=== PATIENT | female | born 1995 | race Caucasian/White ===

== ENCOUNTER → 2019-12-09 | Outpatient (CLI) | payer OTHER ==
[~2019-12-09] MED LIST: ALBU.083IS IH; BIRTH CONTROL; FLUSAL1005 IH; IBUP800 PO; MONT10T PO
[2019-12-10 21:09] LABS: CHLAMYDIA TRACHOMATIS, NAA Negative (Negative); NEISSERIA GONORRHOEAE, NAA Negative (Negative)
== END | disposition home or self-care (01) ==
LOC: LAB SHORT 15:20 → LAB EV 15:20
PROVIDERS: Chiropractor
DX: N34.2 Other urethritis (principal)
CPT/HCPCS: 87491; 87591

== ENCOUNTER → 2020-02-03 | Outpatient (CLI) | payer OTHER ==
[2020-02-04 10:32] LABS: Candida species (DNA Probe) Positive (NEGATIVE); G. vaginalis (DNA Probe) Negative (NEGATIVE); T. vaginalis (DNA Probe) Negative (NEGATIVE)
== END | disposition home or self-care (01) ==
LOC: LAB EV 17:43 → LAB SHORT 17:43
PROVIDERS: Chiropractor
DX: N94.10 Unspecified dyspareunia (principal)
CPT/HCPCS: 87070; 87205; 87480; 87510; 87660

== ENCOUNTER → 2020-02-10 | Outpatient (CLI) | payer OTHER ==
[2020-02-10 16:46] LABS: BASOPHILS ABSOLUTE AUTO 0.05 K/mm3 (0.00-0.23); BASOPHILS PERCENT AUTO 1 % (0-2); EOSINOPHILS ABSOLUTE AUTO 0.27 K/mm3 (0.00-0.68); EOSINOPHILS PERCENT AUTO 3 % (0-6); Hematocrit 45.7 % (33.0-51.0); Hemoglobin 15.4 g/dL (11.5-16.0); IMMATURE GRAN ABSOLUTE AUTO 0.01 K/mm3 (0.00-0.10); IMMATURE GRAN PERCENT AUTO 0 % (0-1); LYMPHOCYTES ABSOLUTE AUTO 2.36 K/mm3 (0.84-5.20); LYMPHOCYTES PERCENT AUTO 30 % (21-46); MONOCYTES ABSOLUTE AUTO 0.61 K/mm3 (0.16-1.47); MONOCYTES PERCENT AUTO 8 % (4-13); Mean Corpuscular HGB 29.2 pg (26.0-34.0); Mean Corpuscular HGB Conc 33.7 g/dL (31.5-36.5); Mean Corpuscular Volume 87 fL (80-100); Mean Platelet Volume 10.2 fL (9.1-12.4); NEUTROPHILS ABSOLUTE AUTO 4.55 K/mm3 (1.96-9.15); NEUTROPHILS PERCENT AUTO 58 % (41-73); Platelet Count 277 K/mm3 (150-400); RDW Coefficient Variation 12.2 % (11.7-14.2); RDW Standard Deviation 38.9 fL (35.1-46.3); Red Blood Cell Count 5.28 M/mm3 (3.80-5.20); White Blood Cell Count 7.85 K/mm3 (4.00-11.30)
[2020-02-10 16:57] LABS: Alanine Aminotransfer (ALT/SGP 19 U/L (12-78); Albumin, Blood 4.2 g/dL (3.4-5.0); Albumin/Globulin Ratio 1.1 (0.8-1.8); Alk Phos 79 U/L (40-126); Anion Gap 8 mmol/L (6-16); Aspartate Aminotrans (AST/SGOT 13 U/L (12-37); Bilirubin, Total 0.3 mg/dL (0.1-1.0); Blood Urea Nitrogen 12 mg/dL (8-24); Bun/Creatinine Ratio 13.2 (12.0-20.0); CO2, Blood 30 mmol/L (21-32); Calcium, Blood 9.5 mg/dL (8.5-10.1); Chloride, Blood 101 mmol/L (98-108); Creatinine, Blood 0.91 mg/dL (0.40-1.00); Glomerular Filtration Rate >60 (60-); Glucose, Blood 88 mg/dL (70-99); Potassium, Blood 3.9 mmol/L (3.5-5.5); Sodium, Blood 139 mmol/L (136-145); Total Protein, Blood 8.2 g/dL (6.4-8.2)
== END ==
LOC: LAB EV 16:42 → LAB SHORT 16:42
PROVIDERS: Physician Assistant
DX: R53.83 Other fatigue (principal)
CPT/HCPCS: 80053; 85025

== ENCOUNTER → 2021-01-24 | Outpatient (CLI) | payer OTHER ==
[2021-01-30 17:10] LABS: CHLAMYDIA BY NAA Negative (Negative); GONOCOCCUS BY NAA Negative (Negative); TRICH VAG BY NAA Negative (Negative)
== END ==
LOC: LAB SHORT 17:42 → LAB 17:42
PROVIDERS: Family Medicine
DX: Z01.419 Encounter for gynecological examination (general) (routine) without abnormal findings (principal)
CPT/HCPCS: 87491; 87591; 87661; G0123

== ENCOUNTER 2022-01-30 05:09 | Inpatient (IN) | payer OTHER ==
--- NOTE | 2022-01-30 07:18 | NUR ---
assumed care at 0715. See GE.
--- NOTE | 2022-01-30 07:47 | NUR ---
PT PUSHING IN ROOM WHEN RN ARRIVED.CNM CALLED. PT DELIVERED OVER INTACT PERNEIUM. PUSHED WELL. VIABLE FEMALE DELIVERED. LAURA TALBERT RN CHARGE IN [facility] FOR DELIVERY AND RENETTA MAYA RN.
--- NOTE | 2022-01-30 09:45 | NUR ---
UP TO SHOWER, PT VOIDED, ANTHONY AMBULATION WELL. LINENS CHANGED.
[2022-01-31 07:23] LABS: Hematocrit 42.8 % (33.0-51.0); Hemoglobin 13.8 g/dL (11.5-16.0); Mean Corpuscular HGB 29.3 pg (26.0-34.0); Mean Corpuscular HGB Conc 32.2 g/dL (31.5-36.5); Mean Corpuscular Volume 91 fL (80-100); Mean Platelet Volume 10.9 fL (9.1-12.4); Platelet Count 199 K/mm3 (150-400); RDW Coefficient Variation 12.5 % (11.7-14.2); RDW Standard Deviation 41.4 fL (35.1-46.3); Red Blood Cell Count 4.71 M/mm3 (3.80-5.20); White Blood Cell Count 15.34 K/mm3 (4.00-11.30)
== END 2022-01-31 09:50 | disposition home or self-care (01) | DRG 807 ==
LOC: BC 05:09 → OBS 05:09 → BC 07:45
PROVIDERS: Nurse Practitioner Obstetrics & Gynecology; ADMIT Family Medicine
PROC: 10E0XZZ Delivery of Products of Conception, External Approach (ICD-10-PCS; principal; 2022-01-30)
DX: O48.0 Post-term pregnancy (principal); Z37.0 Single live birth; O36.5930 Maternal care for other known or suspected poor fetal growth, third trimester, not applicable or unspecified; Z3A.40 40 weeks gestation of pregnancy
CPT/HCPCS: 36415; 59025; 85027; A9270; J2590

== ENCOUNTER 2022-06-29 08:30 | Day surgery (SDC) | payer OTHER ==
[~2022-06-29] VITALS: Ht 162.6 cm; Wt 61.8 kg
[2022-06-29] MEDS ORDERED: Camila0.35 MG PO (09:16)
[2022-06-29] MEDS ORDERED: Loratadine10 MG PO (09:16)
[2022-06-29] MEDS ORDERED: PRENATAL TABLE1 EAC2 PO (09:16)
--- NOTE | 2022-06-29 09:32 | NUR ---
06/29/22 0932 Cathy Briones CALL LIGHT WITHIN REACH. SCOPALAMINE PATCH ON RIGHT EAR PER DR. JOE ORDERS. NO FURTHER QUESTIONS AT THIS TIME.
--- NOTE | 2022-06-29 10:22 | NUR ---
06/29/22 1022 Brennan Osorio ABDOMINAL AREA PREPPED BY [facility] WITH DURAPREP. SRINIVAS AREA PREPPED BY [facility] ([place]) WITH BETADINE SOLUTION ROPIVACAINE 0.5% 20 MLS MIXED & VERIFIED WITH EPI 0.10 (1MG/ML) PER ORDER TO MAKE ROPIVACAINE 0.5% 1:200,000 FOR INJECTION AT OPSITE. MULTI DOSE VIAL. DIVIDED BY RNS.
[2022-06-29 11:36] VITALS: BP 100/66
--- NOTE | 2022-06-29 12:42 | NUR ---
06/29/22 1242 Alfa Garrison PT REPORTED 2/10 PAIN UPON DISCHARGE. SHE DESCRIBED PAIN TOLERABLE, REFUSED IV PAIN MEDICATIONS, AND EXPESSED READINESS TO GO HOME. SHE DENIED NAUSEA.
== END 2022-06-29 12:40 | disposition home or self-care (01) ==
LOC: ORSCSDS 08:30
PROVIDERS: Obstetrics & Gynecology
PROC: 0UT74ZZ Resection of Bilateral Fallopian Tubes, Percutaneous Endoscopic Approach (ICD-10-PCS; principal; 2022-06-29 09:45)
DX: Z30.2 Encounter for sterilization (principal); N80.30 Endometriosis of pelvic peritoneum, unspecified; N73.6 Female pelvic peritoneal adhesions (postinfective)
CPT/HCPCS: 88302; A9270; J0171; J0690; J1100; J1885; J2250; J2405; J2704; J2795; J3010; J7120

== ENCOUNTER → 2023-01-26 | Outpatient (CLI) | payer OTHER ==
[~2023-01-26] MED LIST changes: +Camila0.35 MG PO; +Loratadine10 MG PO; +PRENATAL TABLE1 EAC2 PO
[2023-01-26 18:52] LABS: BASOPHILS ABSOLUTE AUTO 0.03 K/mm3 (0.00-0.23); BASOPHILS PERCENT AUTO 0 % (0-2); EOSINOPHILS ABSOLUTE AUTO 0.18 K/mm3 (0.00-0.68); EOSINOPHILS PERCENT AUTO 3 % (0-6); Hematocrit 41.4 % (33.0-51.0); IMMATURE GRAN ABSOLUTE AUTO 0.01 K/mm3 (0.00-0.10); IMMATURE GRAN PERCENT AUTO 0 % (0-1); LYMPHOCYTES ABSOLUTE AUTO 2.74 K/mm3 (0.84-5.20); LYMPHOCYTES PERCENT AUTO 39 % (21-46); MONOCYTES ABSOLUTE AUTO 0.41 K/mm3 (0.16-1.47); MONOCYTES PERCENT AUTO 6 % (4-13); Mean Corpuscular HGB 30.2 pg (26.0-34.0); Mean Corpuscular HGB Conc 33.8 g/dL (31.5-36.5); Mean Corpuscular Volume 89 fL (80-100); Mean Platelet Volume 10.4 fL (9.1-12.4); NEUTROPHILS ABSOLUTE AUTO 3.69 K/mm3 (1.96-9.15); NEUTROPHILS PERCENT AUTO 52 % (41-73); Platelet Count 249 K/mm3 (150-400); RDW Standard Deviation 39.5 fL (35.1-46.3); Red Blood Cell Count 4.63 M/mm3 (3.80-5.20); White Blood Cell Count 7.06 K/mm3 (4.00-11.30)
[2023-01-26 19:49] LABS: C-REACTIVE PROTEIN, EXT RANGE <0.290 mg/dL (0.000-0.300)
[2023-01-26 20:03] LABS: Alanine Aminotransfer (ALT/SGP 25 U/L (12-78); Albumin, Blood 4.1 g/dL (3.4-5.0); Albumin/Globulin Ratio 1.5 (0.8-1.8); Alk Phos 82 U/L (50-136); Anion Gap 2 mmol/L (6-16); Aspartate Aminotrans (AST/SGOT 19 U/L (12-37); Bilirubin, Total 0.1 mg/dL (0.1-1.0); Blood Urea Nitrogen 17 mg/dL (8-24); Bun/Creatinine Ratio 21.4 (12.0-20.0); CO2, Blood 30 mmol/L (21-32); Calcium, Blood 9.2 mg/dL (8.5-10.1); Chloride, Blood 106 mmol/L (98-108); Creatinine, Blood 0.79 mg/dL (0.40-1.00); Free Thyroxine 0.89 ng/dL (0.70-1.60); Globulin, Blood 2.8 g/dL (2.2-4.0); Glomerular Filtration Rate 106 (60-); Glucose, Blood 91 mg/dL (70-99); Potassium, Blood 4.4 mmol/L (3.5-5.5); Sodium, Blood 138 mmol/L (136-145); Thyroid Stimulating Hormone 0.774 uIU/mL (0.360-4.800); Total Protein, Blood 6.9 g/dL (6.4-8.2); Triiodothyronine, Free 2.75 pg/mL (2.18-3.98)
== END ==
LOC: LAB 17:32 → LAB SHORT 17:32
PROVIDERS: Internal Medicine
DX: R63.4 Abnormal weight loss (principal)
CPT/HCPCS: 80053; 84439; 84443; 84481; 85025; 85651; 86140

== ENCOUNTER 2024-02-15 12:28 | Emergency (ER) | payer OTHER ==
[~2024-02-15] VITALS: Ht 162.6 cm; Wt 67.6 kg
[2024-02-15 12:40] VITALS: BP 118/106
[2024-02-15] MEDS ORDERED: Ketorolac Tromethamine 15mg Vial IM ONE (14:05)
[2024-02-15] MEDS ORDERED: Methocarbamol 500 MG Tab PO ONE (14:10)
[2024-02-15] MEDS ORDERED: Robaxin750 MG PO (14:23)
== END 2024-02-15 14:29 | disposition home or self-care (01) ==
LOC: ER 12:28
DX: M54.41 Lumbago with sciatica, right side (principal)
CPT/HCPCS: 96372; 99283-25; A9270; J1885

== ENCOUNTER → 2024-03-18 | Outpatient (CLI) | payer OTHER ==
[~2024-03-18] MED LIST changes: +Robaxin750 MG PO
[2024-03-18 10:07] LABS: BASOPHILS ABSOLUTE AUTO 0.04 K/mm3 (0.00-0.23); BASOPHILS PERCENT AUTO 1 % (0-2); EOSINOPHILS PERCENT AUTO 5 % (0-6); Hemoglobin 14.1 g/dL (11.5-16.0); IMMATURE GRAN ABSOLUTE AUTO 0.02 K/mm3 (0.00-0.10); IMMATURE GRAN PERCENT AUTO 0 % (0-1); LYMPHOCYTES ABSOLUTE AUTO 1.96 K/mm3 (0.84-5.20); LYMPHOCYTES PERCENT AUTO 30 % (21-46); MONOCYTES ABSOLUTE AUTO 0.49 K/mm3 (0.16-1.47); MONOCYTES PERCENT AUTO 8 % (4-13); Mean Corpuscular HGB 29.4 pg (26.0-34.0); Mean Corpuscular HGB Conc 32.8 g/dL (31.5-36.5); Mean Corpuscular Volume 90 fL (80-100); Mean Platelet Volume 10.5 fL (9.1-12.4); NEUTROPHILS ABSOLUTE AUTO 3.65 K/mm3 (1.96-9.15); NEUTROPHILS PERCENT AUTO 57 % (41-73); Platelet Count 277 K/mm3 (150-400); RDW Coefficient Variation 11.9 % (11.7-14.2); RDW Standard Deviation 38.5 fL (35.1-46.3); White Blood Cell Count 6.46 K/mm3 (4.00-11.30)
[2024-03-18 10:26] LABS: Percent Saturation 12.2 % (15.0-50.0)
== END ==
LOC: LAB SHORT 08:50 → LAB 08:50
PROVIDERS: Internal Medicine
DX: N92.0 Excessive and frequent menstruation with regular cycle (principal)
CPT/HCPCS: 82728; 83540; 83550; 85025; 85730

== ENCOUNTER 2024-04-17 08:32 | Day surgery (SDC) | payer OTHER ==
[~2024-04-17] VITALS: Ht 165.1 cm; Wt 71.0 kg
[2024-04-17] MEDS ORDERED: CeFAZolin Sodium 2,000 MG VIAL ONE (08:46)
[2024-04-17] MEDS ORDERED: Lactated Ringer's 1,000 ML IV ONE ×2 (08:46→09:35)
[2024-04-17] MEDS ORDERED: PSEUDOEPHEDRINE30 M1 PO (09:15)
[2024-04-17] MEDS ORDERED: Citric Acid/Sodium Citrate 30 ML BTL ONE (09:56)
[2024-04-17] MEDS ORDERED: propofoL 40 ML IV ONE (09:57)
[2024-04-17] MEDS ORDERED: FentaNYL Citrate 50 MCG/ML 2 ML Injection ONE (09:59)
[2024-04-17] MEDS ORDERED: Midazolam HCl 1MG / ML 2ML Vial ONE (09:59)
[2024-04-17] MEDS ORDERED: Ondansetron HCl 2 MG / ML 2ML Vial ONE (10:28)
[2024-04-17] MEDS ORDERED: Dexamethasone Sod Phos 10 MG/ML 1ML VIAL ONE (10:28)
[2024-04-17] MEDS ORDERED: Glycopyrrolate 0.2 MG/ML 5ML VIAL ONE (10:28)
--- NOTE | 2024-04-17 10:58 | NUR ---
04/17/24 1058 Katrin Moncada 30ML DEFICIT OF NACL WITH MYOSURE GARNETT REMOVED AT END OF CASE 200ML CLEAR YELLOW URINE TOLERATED WELL
[2024-04-17 11:17] VITALS: BP 119/78
--- NOTE | 2024-04-17 11:33 | NUR ---
04/17/24 1133 Petros Rousseau, PT WHEELED TO THE BATHROOM AND VOIDED. MINIMAL BLEEDING PER PT. DENIES CRAMPING. ONLY BURNING FEELING WHEN VOIDING.
== END 2024-04-17 12:07 | disposition home or self-care (01) ==
LOC: ORSCSDS 08:32 → ORSCMMR 10:00 → ORSCSDS 12:07 → ORSCMMR 14:30 → ORD 14:30
PROVIDERS: Obstetrics & Gynecology
PROC: 0U5B8ZZ Destruction of Endometrium, Via Natural or Artificial Opening Endoscopic (ICD-10-PCS; principal; 2024-04-17 10:00)
DX: N92.0 Excessive and frequent menstruation with regular cycle (principal); N80.9 Endometriosis, unspecified; N94.6 Dysmenorrhea, unspecified; J45.909 Unspecified asthma, uncomplicated; K21.9 Gastro-esophageal reflux disease without esophagitis; F41.9 Anxiety disorder, unspecified; F32.A Depression, unspecified; F17.290 Nicotine dependence, other tobacco product, uncomplicated
CPT/HCPCS: 88305; A9270; J0690; J1100; J2250; J2405; J2704; J3010; J7120